=== PATIENT | female | born 2000 | race Two or more races ===

== ENCOUNTER 2023-07-03 14:05 | Emergency (ER) | payer OTHER ==
[2023-07-03 14:16] VITALS: BP 160/90; O2SAT 99
[2023-07-03 14:33] LABS: BILIRUBIN,URINE NEGATIVE (NEGATIVE); CLARITY,URINE CLOUDY (CLEAR); GLUCOSE, URINE (UA) NEGATIVE (NEGATIVE); KETONES,URINE (UA) 15 mg/dL (NEGATIVE); LEUKOCYTE ESTERASE, URINE MODERATE (NEGATIVE); NITRITE,URINE NEGATIVE (NEGATIVE); OCCULT BLOOD,URINE LARGE (NEGATIVE); PROTEIN,URINE 30 mg/dL (NEGATIVE); UROBILINOGEN,URINE 0.2 (NORMAL) E.U./dL (NORMAL)
[2023-07-03 14:34] LABS: HCG UR QUAL NEGATIVE
--- NOTE | 2023-07-03 14:34 | ED Physician Documentation ---
PD HPI FEMALE - Stated complaint Stated Complaint: FEMALE - Chief complaint Chief Complaint: UTI - Additional information Additional information: 23-year-old generally healthy young lady with dysuria frequency and hematuria. Symptoms started yesterday. Worsening today. Has some suprapubic pain. No fevers chills no back pain no nausea or vomiting. Review of Systems Constitutional: denies: Fever, Chills : reports: Dysuria, Frequency, Hesitancy, Hematuria. denies: Discharge PD PAST MEDICAL HISTORY - Past Medical History Past Medical History: No - Past Surgical History Past Surgical History: No - Present Medications Home Medications: Ambulatory Orders Medication Instructions Recorded Confirmed cephALEXin [Keflex] 500 mg PO Q6H #28 cap 07/03/23 - Allergies Allergies/Adverse Reactions: Allergies Allergy/AdvReac Type Severity Reaction Status Date / Time amoxicillin Allergy Hives Verified 07/03/23 14:10 ibuprofen Allergy Edema Verified 07/03/23 14:10 Penicillins Allergy Hives Verified 07/03/23 14:10 - Social History Does the pt smoke?: No Smoking Status: Never smoker Does the pt drink ETOH?: Yes Does the pt have substance abuse?: No - Immunizations Immunizations are current?: Yes - POLST Patient has POLST: No PD ED PE NORMAL - Vitals Vital signs reviewed: Yes - General General: Alert and oriented X 3 - HEENT HEENT: Atraumatic, Pharynx benign - Neck Neck: Supple, no meningeal sign - Cardiac Cardiac: RRR - Respiratory Respiratory: No respiratory distress - Abdomen Abdomen: Normal bowel sounds, Soft, Other (Mild suprapubic tenderness) Results - Vitals Vitals: Vital Signs - 24 hr 07/03/23 14:10 Temperature 36.8 C Heart Rate 100 Respiratory 16 Rate Blood Pressure 160/90 H O2 Saturation 99 Oxygen O2 Source Room air - Labs Labs: Laboratory Tests 07/03/23 14:18 Urine Color YELLOW Urine Clarity CLOUDY Urine pH 6.0 Ur Specific [place] 1.025 Urine Protein 30 H Urine Glucose (UA) NEGATIVE Urine Ketones 15 H Urine Occult Blood LARGE H Urine Nitrite NEGATIVE Urine Bilirubin NEGATIVE Urine Urobilinogen 0.2 (NORMAL) Ur Leukocyte Esterase MODERATE H Urine RBC 11-25 H Urine WBC >25 H Ur Squamous Epith Cells RARE Squamous Urine Bacteria Few Ur Microscopic Review INDICATED Urine Culture Comments INDICATED Urine HCG, Qual NEGATIVE PD Medical Decision Making - ED course Complexity details: reviewed results ED course: Healthy young female with uncomplicated cystitis. She is not has no systemic signs of illness. Will culture her urine and treat with Keflex. Departure - Departure Disposition: Home, Self Care Clinical Impression: Urinary tract infection Instructions: ED UTI Cystitis Female Prescriptions: cephALEXin [Keflex] 500 mg PO Q6H #28 cap
[2023-07-03 14:48] LABS: BACTERIA,URINE Few /HPF (None Seen); SQUAMOUS EPITHELIAL CELL,UR RARE Squamous (<= Few); WBC,URINE >25 /HPF (0-5)
== END 2023-07-03 15:09 | disposition home or self-care (01) ==
LOC: ED 14:05
DX: N30.90 Cystitis, unspecified without hematuria (principal)
CPT/HCPCS: 81001; 81003; 81025; 87086; 99283

== ENCOUNTER 2023-07-20 08:00 | Outpatient (CLI) | payer OTHER ==
[2023-07-20 20:32] LABS: BACTERIAL VAGINOSIS DNA NEGATIVE (NEGATIVE); CANDIDA GLABRATA DNA NEGATIVE (NEGATIVE); CANDIDA GROUP DNA NEGATIVE (NEGATIVE); CANDIDA KRUSEI DNA NEGATIVE (NEGATIVE); TRICHOMONAS VAGINALIS DNA NEGATIVE (NEGATIVE)
== END 2023-07-20 23:59 | disposition home or self-care (01) ==
LOC: LAB.WC 08:00
PROVIDERS: ATTEND Obstetrics & Gynecology
DX: R10.2 Pelvic and perineal pain (principal)
CPT/HCPCS: 81514

== ENCOUNTER 2023-08-21 11:16 | Outpatient (CLI) | payer OTHER ==
--- NOTE | 2023-08-21 18:16 | Ultrasound Report ---
PROCEDURE: Pelvic w/Transvaginal INDICATIONS: PELVIC PAIN TECHNIQUE: Real-time scanning was performed of the pelvic organs, with image documentation. Additional endovagi nal scanning was necessary due to incomplete visualization of the adnexal and endometrial structures by transabdominal scanning. COMPARISON: None. FINDINGS: Uterus: 7.9 x 3.8 x 4.5 cm. The endometrium measures 1 cm. Anteverted positioning. Ovaries: Nonenlarged bilaterally. Suspected right corpus luteum cyst measures 1.7 cm. Other: Small amount of free fluid probably physiologic. IMPRESSION: Unremarkable, physiologic appearance of the reproductive organs on ultrasound. Reviewed by: Juliano Cui MD on 08/21/2023 6:15 PM PDT Approved by: Juliano Cui MD on 08/21/2023 6:15 PM PDT Station ID: [id number]
== END 2023-08-21 11:17 | disposition home or self-care (01) ==
LOC: DI 11:16
PROVIDERS: ATTEND Obstetrics & Gynecology
DX: R10.2 Pelvic and perineal pain (principal)

== ENCOUNTER 2023-09-14 08:00 | Outpatient (CLI) | payer OTHER | END 2023-09-14 23:59 | disposition home or self-care (01) | LOC: LAB.N 08:00 | PROVIDERS: ATTEND Physician Assistant Medical | DX: N39.0 Urinary tract infection, site not specified (principal) | CPT/HCPCS: 87086 ==

== ENCOUNTER 2023-10-04 08:51 | Day surgery (SDC) | payer OTHER ==
[2023-10-04] MEDS: LACTATED RINGERS 1,000 ML IV ONE ×2 (09:13→11:45)
[2023-10-04 09:14] LABS: HCG UR QUAL NEGATIVE
[2023-10-04] MEDS: ACETAMINOPHEN 325 MG TABLET PO ONE (09:22)
[2023-10-04] MEDS ORDERED: MIDAZOLAM 2 MG/2 ML VIAL ONE (09:33)
[2023-10-04] MEDS ORDERED: BUPIVACAINE 0.25% PF 30 ML VIAL ONE (09:34)
[2023-10-04] MEDS ORDERED: fentaNYL 100 MCG/2 ML VIAL ONE ×3 (09:34→12:03)
[2023-10-04] MEDS ORDERED: ROCURONIUM 50 MG/5 ML VIAL ONE ×2 (09:34→11:06)
[2023-10-04] MEDS ORDERED: PROPOFOL 200 MG/20 ML VIAL IVP ONE ×2 (09:34→10:54)
--- NOTE | 2023-10-04 09:56 | ANESTHESIA ---
Pre-Anesthesia VS, & Labs - Diagnosis Pelvic Pain - Procedure Diagnostic Laparscopy Vital Signs: Temp Pulse Resp BP Pulse Ox O2 Flow Rate 36.4 C L 89 12 149/93 H 100 10/04/23 09:13 10/04/23 09:13 10/04/23 09:13 10/04/23 09:13 10/04/23 09:13 Height: 5 ft 6 in Weight (kg): 88.6 kg Body Mass Index: 31.5 BMI Classification: Obese - Is Patient ?: No Home Medications and Allergies Home Medications: Ambulatory Orders No Known Home Medications 09/29/23 Active Medications Acetaminophen (Acetaminophen 325 Mg Tablet) 650 mg PO ONCE ONE Stop: 10/04/23 10:01 Last Admin: 10/04/23 09:22 Dose: 650 mg No Known Home Medications 09/29/23 Allergies/Adverse Reactions: Allergies Allergy/AdvReac Type Severity Reaction Status Date / Time amoxicillin Allergy Hives Verified 10/04/23 09:22 ibuprofen Allergy Edema Verified 10/04/23 09:22 Penicillins Allergy Hives Verified 10/04/23 09:22 Anes History & Medical History - Medical History Cardiovascular: reports: None Pulmonary: reports: None Gastrointestinal: reports: Chronic constipation Urinary: reports: None Musculoskeletal: reports: None Endocrine/Autoimmune: reports: None Skin: reports: None Smoking Status: Never smoker Exam General: Alert, Cooperative Dental: WNL Mouth Opening: Greater than 4 Fingerbreadths Mallampati classification: I Thyromental Distance: greater than 6 cm Plan Anesthesia Type: General Consent for Procedure(s) Verified and Reviewed: Yes Code Status: Attempt Resuscitation ASA classification: 1-Healthy patient Is this case an emergency?: No
[2023-10-04] MEDS ORDERED: ATROPINE ABBOJECT 1 MG/10 ML SYRINGE IVP PRN (09:57)
[2023-10-04] MEDS ORDERED: ePHEDrine 50 MG/ML VIAL IVP PRN (09:57)
[2023-10-04] MEDS ORDERED: ONDANSETRON 4 MG/2 ML VIAL IVP PRN ×2 (09:57→12:35)
[2023-10-04] MEDS ORDERED: MORPHINE 2 MG/ML CARPUJECT IVP PRN (09:57)
[2023-10-04] MEDS ORDERED: NALOXONE 0.4 MG/ML VIAL IVP PRN (09:57)
[2023-10-04] MEDS ORDERED: HYDROmorphone 0.5 MG/0.5 ML SYRINGE IVP PRN ×2 (09:57→12:35)
[2023-10-04] MEDS ORDERED: LACTATED RINGERS 1,000 ML IV SCH (10:00)
[2023-10-04] MEDS ORDERED: ePHEDrine 50 MG/ML VIAL IVP ONE (10:44)
[2023-10-04] MEDS ORDERED: DEXAMETHASONE 4 MG/ML VIAL ONE (10:46)
[2023-10-04] MEDS ORDERED: ONDANSETRON 4 MG/2 ML VIAL ONE (10:46)
[2023-10-04] MEDS ORDERED: KETAMINE 200 MG/20 ML VIAL ONE (10:54)
[2023-10-04] MEDS ORDERED: SUGAMMADEX 200 MG/2 ML VIAL IVP ONE ×2 (10:58→11:30)
[2023-10-04] MEDS ORDERED: HYDROmorphone 1 MG/ML CARPUJECT ONE (11:11)
[2023-10-04] MEDS ORDERED: DEXMEDETOMIDINE 200 MCG/2 ML VIAL ONE (11:11)
[2023-10-04] MEDS: fentaNYL 100 MCG/2 ML VIAL IVP PRN (12:00)
--- NOTE | 2023-10-04 12:10 | ANESTHESIA POST OP EVALUATION ---
Anesthesia Post Eval - Post Anesthesia Eval Vitals: Last Vital Signs Temp 36.4 C L 10/04/23 11:45 Pulse 85 10/04/23 12:00 Resp 12 10/04/23 12:00 BP 129/75 10/04/23 12:00 Pulse Ox 96 10/04/23 12:00 O2 Flow Rate CV Function Including HR & BP: Stable Pain Control: Satisfactory Nausea & Vomiting: Negative Mental Status: Baseline Respiratory Status: Airway Patent Hydration Status: Satisfactory Anesthesia Complications: None
[2023-10-04 12:35] VITALS: BP 123/70; O2SAT 98
[2023-10-04] MEDS: oxyCODONE 5 MG TABLET PO PRN (12:47)
--- NOTE | 2023-10-04 19:52 | OPERATIVE REPORT ---
Operative Report - General Procedure Date: 10/04/23 Planned Procedure: Diagnostic Laparoscopy with removal of endometriosis if found. Pre-Op Diagnosis: pelvic pain Procedure Performed: Laparoscopy with peritoneal biopsy and removal of right paratubal cyst. Post Op Diagnosis: right paratubal cyst, possible endometriosis - Procedure Note Primary Surgeon: Siri Mendez MD Secondary Surgeon: Lasha Holloway MD Anesthesia Provider: Aileen Ann CRNA Anesthesia Technique: General ET tube Pathology: posterior cul de sac peritoneal biopsy, right paratubal cyst IV Fluids (mL): 1,500 Estimated Blood Loss (mL): 10 Urine Output (mL): 400 Indications: pelvic pain Findings: right paratubal cyst, about 1 cm. tissue in posterior cul de sac with a ho rizontal line of small vescicles and then a darker endometriosis looking spot. The rest of pelvis and liver edge appeared normal. Uterus appeared normal. Complications: none - Other Other Information/Narrative: Patient was brought to the operating room. General anesthesia was induced and ETT was placed. Her legs were placed in Saud type stirrups and she was prepped and draped in normal sterile manner. Palomares catheter was placed. Time out was done. No abx were given. Speculum was placed and cervix was grasped with ten aculum and uterine manipulator was placed. Speculum removed. Gloves were changed. Attention turned to her abdomen. Umbilical area injected with Marcaine and incision made. 5 mm trocar placed under direct visualization but then appeared to be in omentum. Unable to insufflate so the veress needle was placed in the left upper quadrant under the costal margin. Abdomen was insufflated with CO2 gas to 15 mm pressure. Umbilcal trocar then replaced. Veress needle removed. Second trocar placed in right lower quadrant. With this, the peritoneal cavity was examined with the above findings. A third 5 mm trocar was placed in the left lower quadrant. The peritoneum was grasped in the posterior cul-de-sac and pulled away from the pelvic wall. The metzenbaum scissors were placed and used to excise the area of vescicles and spot of ? endometriosis. This tissue is removed and sent for pathology. The cautery was used to cauterize the edges. There was minimal bleeding. The right paratubal cyst was stabilized and the scissors were used to remove the paratubal cyst. This was also sent for pathology. The tube was intact. There was no bleeding and cautery was not needed. The gas was evacuated using the desufflator and trocars were removed. Uterine manipulator and palomares catheter were removed. Skin incisions were closed with 4- 0 vicryl suture, steristips and bandaids. Patient was awakened and brought to the recovery room in stable condition.
== END 2023-10-04 08:52 | disposition home or self-care (01) ==
LOC: SDS 08:51
PROVIDERS: ATTEND Obstetrics & Gynecology
PROC: 0UBF4ZX Excision of Cul-de-sac, Percutaneous Endoscopic Approach, Diagnostic (ICD-10-PCS; 2023-10-04)
PROC: 0UB54ZZ Excision of Right Fallopian Tube, Percutaneous Endoscopic Approach (ICD-10-PCS; principal; 2023-10-04 10:15)
DX: R10.2 Pelvic and perineal pain (principal); N80.329 Endometriosis of the posterior cul-de-sac, unspecified depth; N83.8 Other noninflammatory disorders of ovary, fallopian tube and broad ligament; E66.9 Obesity, unspecified; Z68.31 Body mass index [BMI] 31.0-31.9, adult
CPT/HCPCS: 58662; 81025; A9270; J1170; J3490; J7120

== ENCOUNTER 2024-12-06 20:02 | Inpatient (IN) ==
[2024-12-06] MEDS ORDERED: TRANEXAMIC ACID IN NACL 1,000 MG/100 ML BAG IV PRN (20:03)
[2024-12-06] MEDS ORDERED: METHYLERGONOVINE 0.2 MG/ML VIAL IM PRN (20:03)
[2024-12-06] MEDS ORDERED: METOCLOPRAMIDE 10 MG TABLET PO PRN (20:03)
[2024-12-06] MEDS ORDERED: LABETALOL 20 MG/4 ML SYRINGE IVP PRN ×3 (20:03)
[2024-12-06] MEDS ORDERED: ACETAMINOPHEN 500 MG TABLET PO PRN ×2 (20:03)
[2024-12-06] MEDS ORDERED: OXYTOCIN 10 UNIT/ML VIAL IM PRN (20:03)
[2024-12-06] MEDS ORDERED: hydrALAZINE INJ 20 MG/ML VIAL IVP PRN (20:03)
[2024-12-06] MEDS ORDERED: OXYTOCIN/SODIUM CHLORIDE 500 ML IV PRN (20:03)
[2024-12-06] MEDS ORDERED: LACTATED RINGERS 1,000 ML IV PRN (20:03)
[2024-12-06] MEDS ORDERED: TERBUTALINE 1 MG/ML VIAL SUBQ PRN (20:03)
[2024-12-06] MEDS ORDERED: SODIUM CHLORIDE FLUSH 0.9% 10 ML SYRINGE IVP PRN (20:03)
[2024-12-06] MEDS ORDERED: CALCIUM CARBONATE CHEW 500 MG TABLET PO PRN (20:03)
[2024-12-06] MEDS ORDERED: ONDANSETRON ODT 4 MG TABLET PO PRN (20:03)
[2024-12-06] MEDS ORDERED: CARBOPROST TROMETHAMINE 250 MCG/ML VIAL IM PRN (20:03)
[2024-12-06] MEDS ORDERED: fentaNYL 100 MCG/2 ML VIAL IVP PRN (20:03)
[2024-12-06] MEDS ORDERED: SODIUM CHLORIDE FLUSH 0.9% 10 ML SYRINGE IVP SCH (21:00)
[2024-12-06 21:34] LABS: HCT - HEMATOCRIT 37.4 % (37.0-47.0); HGB - HEMOGLOBIN 13.2 g/dL (12.0-16.0); MEAN PLATELET VOLUME 10.2 fL (7.9-10.8); NRBC ABSOLUTE COUNT (AUTO) 0.00 x10^3/uL; NUCLEATED RED BLOOD CELLS AUTO 0.0 /100WBC; PLT - PLATELET COUNT 265 10^3/uL (130-450); RED CELL DISTRIBUTION WIDTH 12.2 % (12.0-15.0)
[2024-12-06 22:07] LABS: ALT ALANINE AMINOTRANSFERASE 26.0 IU/L (10-60); BUN - BLOOD UREA NITROGEN 13.0 mg/dL (6-20); CARBON DIOXIDE - CO2 22.0 mmol/L (21-32); CREATININE 0.6 mg/dL (0.6-1.3); GFR - MDRD 124.0 (>89)
--- NOTE | 2024-12-06 22:15 | HISTORY & PHYSICAL EXAMINATION ---
Admit History Visit Reason Visit Reason: Other (hypertension at term) : 2 Parity: 0 Care: positive [facility] Complications This : positive induced HTN Smoking Status: Never smoker Mother's Labs Mother's Blood Type: positive O Mother's RH: positive Positive GBS: positive Group B Step Negative Rubella Status: positive Immune Other Maternal History Other Maternal History: Presents for labor induction due to elevated bps in clinic. 140s/90s. not elevated at home. feels well. was hoping to wait to deliver until Dez is back on Tuesday but I recommended she come in today given bps. Specific Issues/Plans LMP: 02/16/2024 JAM by LMP: 11/22/2024 US on 04/16/24 at 5.6 wks NOT c/w LMP dating Final JAM: 12/09/2024 HTN at first visit. 142/62 no dx of htn but always high at the doctor. BP cuff ordered and will check and make a log. start ASA at 12 weeks. Dez - active duty, to return 12/08. Pre- Weight: 165 BMI: 26.6 Blood type: O+ Antibody: negative CBC: H/H/PLT- 13.9/39.9/304 RUB:Immune VZV:NON immune HBsAg: Negative HepC: NR RPR/AB-EIA:NR HIV:NR PAP: 05/2023 GC/CT:Negative HSV: denies Genetic testing:NIPT- Negative AFP-Negative Covid: to get 11/28 Flu: to get 11/28 FAS: Placenta:posterior w/o previa Cord:3VC TOM:wnl EFW:439g, 64th%ile 50gm OGCT: 09/06/24 Glucose drank in clinic 113 3HR GTT: TDAP: 11/02 Breast Pump:info given Antibody screen: 3rd trimester H/H PLT 13.1/36.8 3rd trimester RPR NR GBS:collected, PCN allergy-Negative RSV: 11/19/24 Delivery plan: after Dez gets here. MOD: Contraception:Paragard HPI Diagnosis/Indication for NST: Gestational Hypertension NST Procedure NST Procedure: Reactive for of 32 weeks gestation or more. NST tracing contains at least two heart rate accelerations that are at least 15 beats per minute above the baseline rate and lasting at least 15 seconds from onset to return to baseline within a twenty minute period. Results and Plan Findings/Impression: reactive NST Plan: admit for induction Meds/Allgy Home Medications Ambulatory Orders Medication Instructions Recorded Confirmed docusate sodium 100 mg capsule 100 - 200 mg (1 - 2 x 1 00 mg) PO 10/04/23 12/06/24 (Stool Softener) BID PRN Constipation #60 cap s aspirin 81 mg capsule 81 mg PO QDAY #90 caps 05/1812/06/24 blood pressure monitor #1 ea 05/18/24 12/06/24 vits 168-iron 27 mg-folic 1 cap PO DAILY #90 caps 08/10/24 12/06/24 acid 800 mcg-omega3 235 mg capsule (One-A-Day -1) Allergies Allergies Allergy/AdvReac Type Severity Reaction Status Date / Time amoxicillin Allergy Hives Verified 12/06/24 15:11 ibuprofen Allergy Edema Verified 12/06/24 15:11 Penicillins Allergy Hives Verified 12/06/24 15:11 PFSH Active Problems All Active Problems Supervision of high risk in third trimester (Acute) Elevated blood pressure affecting in third trimester, antepartum (Acute) Medical History Medical History Penicillin allergy Endometriosis (09/2023) seen on laparoscopy Surgical History Surgical History H/O laparoscopy (10/04/23) endometriosis removed. Dr. Mendez Family History Family History Paternal grandfather Cancer Diabetes Maternal grandmother Diabetes Maternal grandfather Diabetes Paternal grandfather Diabetes High blood pressure Father Alcoholism Paternal grandmother Dementia Social History Social History Smoking Status: Never smoker Second hand tobacco smoke exposure: Yes ( vapes) Do you dip or chew tobacco?: No Do you vape?: No Living arrangement: At home Marital Status: Living Condition: With spouse/s.o. Relationship Notes: Dez in [employer]. 2021 Level: Independent Do you feel safe in your home environment?: Yes History of physical, verbal, emotional, or financial abuse?: No ETOH Use: None Frequency: Occasional Substance Use: denies use Are you sexually active?: Yes Occupation - Current: Teacher at [employer] Patient has POLST: No Review of Systems no headache, n/v, swelling. feels well. no fever. Physical Abdominal Exam Vital Signs: 145/86, 160/98 in clinic today. Contraction Frequency (min/apart): none Uterine Resting Tone: positive Soft Monitoring Heart Rate Baseline: 145 Strip Review: positive Category I Presentation Presentation: positive Vertex Vaginal Exam Membranes: positive Membranes intact Dilation (in cm): closed Effacement (%): 70 Station: positive -3 Cervical Position: positive Posterior Speculum Exam Speculum Exam Performed: positive No Other Notes Labor Progress Note/Additional Text: here for induction, not in labor Plan for Labor Plan For Labor I expect patient to be DC'd or transferred within 96 hours.: Yes Conclusion/Plan Problem List (1) Elevated blood pressure affecting in third trimester, antepartum: Plan recommend labor induction. consents signed. will start with miso. Lab Results 12/06/24 21:10 12/06/24 21:10 Diagnostic Imaging Results Diagnostic Imaging Results Comments: last us: 11/09 FINDINGS: General: A single live intrauterine gestation is present. Presentation: Vertex Placenta: Placental position is posterior without previa. Amniotic fluid index: 11.4 cm, 25.1 percentile for gestational age. heart rate: 160 beats per minute. Maternal cervical canal: Nonvisualized biometrics: Biparietal diameter: 8.4 cm, 33 week 5 day Head circumference: 32.2 cm, 36 week 3 day Abdominal circumference: 30.1 cm, 34 week 1 day Femur length: 6.7 cm, 34 week 5 day Estimated gestational age by working dates: 35 week 4 day Composite gestational age by current ultrasound: 34 week 5 day Estimated weight and percentile: 2436.7 g, 20.6 percentile Measurement variability in biometric dating: +/- 10 days from 12-20 weeks gestation, +/- 2 weeks from 20-30 weeks gestation, +/- 3 weeks at 30 weeks gestation or more. Other: Not applicable. IMPRESSION: Single live intrauterine consistent with 34 week 5 day gestation by current ultrasound Reviewed by: Dez Diego MD on 11/09/2024
[2024-12-06 22:22] LABS: AST ASPARTATE AMINOTRANSFERASE 23.0 IU/L (10-42)
[2024-12-07 00:50] VITALS: BP 125/81; TEMP 98.6
[2024-12-07 01:18] LABS: TOTAL PROTEIN,URINE TIMED 5.0 mg/dL
[2024-12-07] MEDS: DOCUSATE SODIUM 100 MG CAPSULE PO PRN (02:04)
[2024-12-07] MEDS ORDERED: FAMOTIDINE 20 MG/2 ML VIAL IVP SCH (09:00)
--- NOTE | 2024-12-07 11:19 | Discharge Summary ---
Discharge Summary Admit Date: 12/06/24 Discharge Date: 12/07/24 HPI History of Present Illness: Admission Diagnosis: - [facility] at 39w4d - gestational hypertension Discharge Diagnosis: - [facility] at 39w5d - gestational hypertension Procedures: cervical ripening with misoprstol Hospital Course: Angi is a 24 yo who presented at 39w4d for induction of labor in the setting of gestational hypertension. She was seen in clinic yesterday, and had elevated blood pressures meeting criteria for gestational hypertension. She received misoprostol overnight for cervical ripening. Today, Angi is requesting discharge home. She says she would prefer to go into spontaneous labor and would also like to wait for her partner to be able to join her. Preeclampsia labs were normal on admission last evening, she is asymptomatic, and has normal blood pressures since admission last evening. FHTs have remained Cat 1. Not yet feeling any cramping/contractions. OBJECTIVE: Vital signs reviewed, normotensive. GENERAL: NAD CHEST: non labored respirations ABD: soft, gravid EXT: no lower extremity edema LAB & IMAGING STUDIES: admission labs reviewed, including CBC, CMP, protein:creatinine ratio, T&S PLAN: Angi requests discharge home. I discussed with her that we do not recommend discharge home but continued IOL due to gestational hypertension at term. We discussed risks of continuing including maternal seizure, stroke, liver & kidney injury, placental abruption, hemorrhage, /maternal . She is able to verbalize these risks and does still desire discharge home. She has a blood pressure cuff at home and I encouraged her to take blood pressure twice daily.. Reviewed blood pressure parameters and to present to the ED if she were to have severe hypertension (systolic BP of 160 or diastolic BP of 110) or symptoms including severe headache, vision changes, upper abdominal pain, CP, SOB, decreased movement. Labor precautions discussed. She will return to clinic on Tuesday for BP check and NST, I will order labs for her to do on Tuesday as well. Encouraged her to complete labs prior to her visit. Eh Avalos MD ALLERGIES Allergies Allergy/AdvReac Type Severity Reaction Status Date / Time amoxicillin Allergy Hives Verified 12/06/24 15:11 ibuprofen Allergy Edema Verified 12/06/24 15:11 Penicillins Allergy Hives Verified 12/06/24 15:11 MEDICATIONS Ambulatory Orders Medication Instructions Recorded Confirmed docusate sodium 100 mg capsule 100 - 200 mg (1 - 2 x 1 00 mg) PO 10/04/23 12/06/24 (Stool Softener) BID PRN Constipation #60 cap s aspirin 81 mg capsule 81 mg PO QDAY #90 caps 05/1812/06/24 blood pressure monitor #1 ea 05/18/24 12/06/24 vits 168-iron 27 mg-folic 1 cap PO DAILY #90 caps 08/10/24 12/06/24 acid 800 mcg-omega3 235 mg capsule (One-A-Day -1) LABS 12/06/24 21:10 12/06/24 21:10 FOLLOW UP Follow Up: OB appointment on Tuesday TIME SPENT Time Spent in Discharge (Minutes): 30 Discharge Plan Discharge Patient Disposition: Home, Self Care Prescriptions: Continued docusate sodium [Stool Softener] 100 MG capsule 100 - 200 mg PO BID PRN (Reason: Constipation) Qty: 60 1RF One-A-Day -1 27 mg iron- 800 mcg-235 mg capsule 1 cap PO DAILY Qty: 90 3RF Rx Instructions: any covered vitamins (DME) blood pressure monitor Kit See Rx Instructions .Route Qty: 1 0RF Rx Instructions: to take bp daily during aspirin 81 mg capsule 81 mg PO QDAY Qty: 90 3RF Print Language: Portuguese Patient Instructions: Understanding Preeclampsia Follow-up Care: Siri Mendez MD [Primary Care Provider, Obstetrics/Gynecology]
[2024-12-07] MEDS ORDERED: ROPIVACAINE 0.2% 200 MG/100 ML BAG EP ONE (15:43)
[2024-12-07] MEDS ORDERED: LIDOCAINE 2%-EPI 1:100000 20 ML MDV ONE (15:43)
== END 2024-12-07 11:43 | disposition home or self-care (01) | DRG 833 ==
LOC: WFO 20:02 → FBP 20:04
PROVIDERS: ADMIT Obstetrics & Gynecology; ATTEND Obstetrics & Gynecology